=== PATIENT | male | born 1945 | race Caucasian/White ===

== ENCOUNTER → 2018-02-28 13:52 | Outpatient (CLI) | payer MEDICARE, SELFPAY ==
--- NOTE | 2018-02-28 | DI.MRI.S_ITS ---
PROCEDURE: MR KNEE LT WO CON INDICATIONS: UNILATERAL PRIMARY OSTEOARTHRITIS OF LEFT KNEE TECHNIQUE: Noncontrast sagittal PD fast spin echo and T2 fast spin echo with fat saturation, sagittal 3-D FLASH with fat saturation; coronal T1 spin echo and PD fast spin echo with fat saturation, and axial PD fast spin echo with fat saturation through the knee. COMPARISON: None. FINDINGS: Image quality: Excellent. Menisci: Truncated appearance involving posterior horn and body of medial meniscus is seen with slight peripheral displacement no medial meniscus bowing medial collateral ligament. Finding may represent chronic posterior horn medial meniscal tear versus prior partial meniscectomy. No evidence of focal lateral meniscal tear. The meniscal root ligaments appear intact. Cruciate ligaments: The anterior and posterior cruciate ligaments appear intact. Medial structures: The medial collateral ligament appears intact. The posterior oblique ligament, semimembranosus tendon insertions, oblique popliteal ligament, and meniscocapsular junction appear intact. Visualized portions of the pes anserinus tendons appear normal. No abnormal bursal fluid. Lateral structures: The lateral collateral ligament, long and short heads of the biceps femoris tendon appear intact. The popliteus tendon appears normal; the popliteofibular ligament appears intact. The posterosuperior and anteroinferior popliteomeniscal fascicles appear intact. The arcuate and fabellofibular ligaments appear intact, on either side of the lateral inferior geniculate artery. Iliotibial band appears normal. Anterior structures: The quadriceps and patellar tendons appear intact. Patellar alignment is normal. No femoral trochlear dysplasia or ventral trochlear prominence. No edema in the infrapatellar fat pad. Bones and cartilage: No bone marrow contusions or fractures. Mild tricompartment osteoarthritis is seen more on any medial femoral-tibial compartment with thinning of articulating cartilage is. Low-grade chondromalacia involving apex and lateral facet of patella cartilage is also seen. Joint space: There is small amount of joint effusion. No Aguilera's cyst. Normal appearing synovial plicae are incidentally noted. IMPRESSION: 1. Mild tricompartment osteoarthritis more prominent in the medial femorotibial compartment. Low-grade chondromalacia involving cartilage overlying medial femoral condyle and patella cartilage. 2. Truncated appearance involving body and posterior horn of medial meniscus which may represent prior partial meniscectomy versus chronic complex tear. No evidence of focal lateral meniscal tear. 3. Cruciate ligaments are intact. Dictated by: Tino Daly M.D. on 02/28/2018 at 15:35 Approved by: Tino Daly M.D. on 02/28/2018 at 15:39
== END ==
PROVIDERS: Family Provider Internal Medicine; PCP Internal Medicine; Visit Provider Orthopaedic Surgery
DX: M17.12 Unilateral primary osteoarthritis, left knee (principal); M22.42 Chondromalacia patellae, left knee
CPT/HCPCS: 73721

== ENCOUNTER → 2018-07-02 09:32 | Outpatient (CLI) | payer MEDICARE, SELFPAY ==
[2018-07-02 10:26] LABS: Alanine Aminotransferase 45 IU/L (21-72); Albumin 4.4 g/dL (3.5-5.0); Albumin Globulin Ratio 1.6 (1.0-2.8); Alkaline Phosphatase 53 U/L (38-126); Aspartate Aminotransferase 28 IU/L (17-59); Bilirubin Total 0.8 mg/dL (0.2-1.3); Blood Urea Nitrogen 16 mg/dL (9-20); Calcium 9.7 mg/dL (8.4-10.2); Carbon Dioxide 29 mmol/L (22-32); Chloride 100 mmol/L (98-107); Cholesterol 232 mg/dL (140-199); Estimated Glomerular Filt Rate > 60.0 mL/min (>60); Globulin 2.7 g/dL (1.7-4.1); Glucose 114 mg/dL (80-110); HDL Cholesterol 46 mg/dL (40-60); HEMOLYSIS < 15 (0-50); LDL Cholesterol Calculated 150 mg/dL (<100); Potassium 4.4 mmol/L (3.4-5.1); Sodium 139 mmol/L (137-145); Total Protein 7.1 g/dL (6.3-8.2); Triglycerides 178 mg/dL (35-150)
[2018-07-02 10:57] LABS: Prostate Specific Antigen Scrn 0.291 ng/mL (0.1-4.0)
== END ==
PROVIDERS: Family Provider Internal Medicine; PCP Internal Medicine; Visit Provider Internal Medicine
DX: I10 Essential (primary) hypertension (principal); E78.2 Mixed hyperlipidemia; Z12.5 Encounter for screening for malignant neoplasm of prostate
CPT/HCPCS: 36415; 80053; 80061; G0103

== ENCOUNTER → 2019-06-19 09:59 | Outpatient (CLI) | payer MEDICARE, SELFPAY ==
[2019-06-19 11:11] LABS: Alanine Aminotransferase 37 IU/L (<50); Albumin 4.4 g/dL (3.5-5.0); Albumin Globulin Ratio 1.6 (1.0-2.8); Alkaline Phosphatase 47 U/L (38-126); Aspartate Aminotransferase 32 IU/L (17-59); Bilirubin Total 0.8 mg/dL (0.2-1.3); Blood Urea Nitrogen 13 mg/dL (9-20); Calcium 9.8 mg/dL (8.4-10.2); Carbon Dioxide 28 mmol/L (22-32); Chloride 103 mmol/L (98-107); Cholesterol 174 mg/dL (140-199); Estimated Glomerular Filt Rate > 60.0 mL/min (>60); Globulin 2.7 g/dL (1.7-4.1); Glucose 111 mg/dL (80-110); HDL Cholesterol 40 mg/dL (40-60); HEMOLYSIS < 15 (0-50); LDL Cholesterol Calculated 105 mg/dL (<100); Potassium 4.4 mmol/L (3.4-5.1); Sodium 141 mmol/L (137-145); Total Protein 7.1 g/dL (6.3-8.2); Triglycerides 145 mg/dL (35-150)
[2019-06-19 11:40] LABS: Prostate Specific Antigen Scrn 0.319 ng/mL (0.1-4.0)
== END ==
PROVIDERS: PCP Internal Medicine; Visit Provider Internal Medicine
DX: E78.2 Mixed hyperlipidemia (principal); I10 Essential (primary) hypertension; Z12.5 Encounter for screening for malignant neoplasm of prostate; Z79.899 Other long term (current) drug therapy
CPT/HCPCS: 36415; 80053; 80061; G0103

== ENCOUNTER → 2020-08-08 09:56 | Outpatient (CLI) | payer MEDICARE, SELFPAY ==
[2020-08-08 11:16] LABS: Alanine Aminotransferase 28 IU/L (<50); Albumin 4.4 g/dL (3.5-5.0); Albumin Globulin Ratio 1.6 (1.0-2.8); Alkaline Phosphatase 60 U/L (38-126); Aspartate Aminotransferase 29 IU/L (17-59); Bilirubin Total 0.7 mg/dL (0.2-1.3); Blood Urea Nitrogen 13 mg/dL (9-20); Carbon Dioxide 35 mmol/L (22-32); Chloride 102 mmol/L (98-107); Cholesterol 182 mg/dL (140-199); Estimated Glomerular Filt Rate > 60.0 mL/min (>60); Globulin 2.7 g/dL (1.7-4.1); Glucose 115 mg/dL (80-110); HDL Cholesterol 44 mg/dL (40-60); HEMOLYSIS < 15 (0-50); LDL Cholesterol Calculated 103 mg/dL (<100); Potassium 4.8 mmol/L (3.4-5.1); Sodium 139 mmol/L (137-145); Total Protein 7.1 g/dL (6.3-8.2); Triglycerides 173 mg/dL (35-150)
[2020-08-08 11:47] LABS: Prostate Specific Antigen Scrn 0.292 ng/mL (0.1-4.0)
== END ==
PROVIDERS: PCP Internal Medicine; Referring Provider Internal Medicine; Visit Provider Internal Medicine
DX: E78.2 Mixed hyperlipidemia (principal); Z12.5 Encounter for screening for malignant neoplasm of prostate; I10 Essential (primary) hypertension
CPT/HCPCS: 36415; 80053; 80061; G0103

== ENCOUNTER → 2021-09-12 08:54 | Outpatient (CLI) | payer MEDICARE, SELFPAY ==
[2021-09-12 12:23] LABS: Alanine Aminotransferase 31 IU/L (<50); Albumin 4.4 g/dL (3.5-5.0); Albumin Globulin Ratio 1.7 (1.0-2.8); Alkaline Phosphatase 47 U/L (38-126); Aspartate Aminotransferase 31 IU/L (17-59); Bilirubin Total 0.8 mg/dL (0.2-1.3); Blood Urea Nitrogen 12 mg/dL (9-20); Calcium 9.5 mg/dL (8.4-10.2); Carbon Dioxide 30 mmol/L (22-32); Chloride 105 mmol/L (98-107); Cholesterol 210 mg/dL (140-199); Estimated Glomerular Filt Rate > 60 mL/min (>60); Globulin 2.6 g/dL (1.7-4.1); Glucose 108 mg/dL (80-110); HDL Cholesterol 48 mg/dL (40-60); HEMOLYSIS < 15 (0-50); LDL Cholesterol Calculated 128 mg/dL (<100); Potassium 4.5 mmol/L (3.4-5.1); Sodium 141 mmol/L (137-145); Triglycerides 168 mg/dL (35-150)
== END ==
PROVIDERS: PCP Internal Medicine; Referring Provider Internal Medicine; Visit Provider Internal Medicine
DX: E78.2 Mixed hyperlipidemia (principal); I10 Essential (primary) hypertension
CPT/HCPCS: 36415; 80053; 80061

== ENCOUNTER → 2022-09-15 08:48 | Outpatient (CLI) | payer MEDICARE, SELFPAY ==
[2022-09-15 10:19] LABS: Alanine Aminotransferase 31 IU/L (<50); Albumin 4.2 g/dL (3.5-5.0); Albumin Globulin Ratio 1.4 (1.0-2.8); Alkaline Phosphatase 48 U/L (38-126); Aspartate Aminotransferase 26 IU/L (17-59); BUN Creatinine Ratio 12.3 (6-22); Blood Urea Nitrogen 13 mg/dL (9-20); Carbon Dioxide 31 mmol/L (22-32); Chloride 102 mmol/L (98-107); Cholesterol 172 mg/dL (140-199); Estimated Glomerular Filt Rate > 60 mL/min (>60); Globulin 2.9 g/dL (1.7-4.1); Glucose 109 mg/dL (80-110); HDL Cholesterol 36 mg/dL (40-60); HEMOLYSIS < 15 (0-50); LDL Cholesterol Calculated 103 mg/dL (<100); Potassium 3.8 mmol/L (3.4-5.1); Sodium 138 mmol/L (137-145); Total Protein 7.1 g/dL (6.3-8.2); Triglycerides 165 mg/dL (35-150)
== END ==
PROVIDERS: PCP Internal Medicine; Referring Provider Internal Medicine; Visit Provider Internal Medicine
DX: I10 Essential (primary) hypertension (principal); E78.2 Mixed hyperlipidemia
CPT/HCPCS: 36415; 80053; 80061

== ENCOUNTER 2022-11-01 13:26 | Day surgery (SDC) | payer MEDICARE, SELFPAY ==
--- NOTE | 2022-11-01 13:52 | PM.HP.1 ---
History of Present Illness History of Present Illness Date Patient Seen: 11/01/22 Time Patient Seen: 13:52 Chief complaint: Dx Colonoscopy Narrative: Vasu is a 77-year-old man who is here for colonoscopy. His last was 10 years ago and he thinks some polyps were removed. His father had colon cancer in his 90s. 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) Surgical History History of carpal tunnel repair Family History (Updated 09/17/22 @ 15:25 by Brian Carvajal MD) Father Colon cancer Social History Smoking Status: Former smoker Meds Home Medications and Allergies Home Medications Medication Instructions Recorded Confirmed Type Fish Oil (#FISH OIL) 1 iu PO Q DAY ##0 09/27/11 09/17/22 History Multivitamin 1 packet PO BID 08/18/20 09/17/22 History fluticasone propionate 50 2 spray intranasal BEDTIME #16 09/11/21 09/17/22 Rx mcg/actuation nasal grams spray,suspension atenolol 50 mg-chlorthalidone 25 See Rx Instructions PO QDAY #90 02/07/22 09/17/22 Rx mg tablet tabs simvastatin 40 mg tablet (Zocor) 40 mg PO Q DAY #90 tabs 08/24/22 09/17/22 Rx clotrimazole-betamethasone 1 1 applic topical TID #45 grams 09/17/22 09/17/22 Rx %-0.05 % topical cream sildenafil 100 mg tablet 50 - 100 mg PO DAILY PRN sexual 09/17/22 09/17/22 Rx activity #10 tabs sodium sul 1.479 gram-potas ch See Rx Instructions PO PER PKG DIR 10/30/22 Rx 0.188 gram-magnes sul 0.225 gram #24 tabs tablet (Sutab) Allergies Allergy/AdvReac Type Severity Reaction Status Date / Time No Known Drug Allergies Allergy Verified 11/01/22 13:52 Exam Const General: healthy appearing Assessment & Plan Assessment and plan (1) History of adenomatous polyp of colon: Status: Inactive Plan Dorian is a 77-year-old man who is here for colonoscopy. We reviewed the risks and benefits and he would like to proceed.
[2022-11-01 13:54] VITALS: BP 148/83; PULSE 102; RESP 17; TEMP 36.4; O2SAT 93; BMI 28.7
[2022-11-01] MEDS: LACTATED RINGERS 1,000 ML 120 ML IV (14:14)
--- NOTE | 2022-11-01 14:50 | P.OP.COLON_ITS ---
Operative Date/Time/Diagnoses Date of procedure: 11/01/22 Time of procedure: 14:50 Pre-op diagnosis: Colon cancer screening Post-op diagnosis: same Procedure & Clinicians Study performed: Colonoscopy Same procedure as scheduled: Yes Surgeon: Blaise Gomez Procedure Notes Procedure in detail: Surgeon: Blaise Gomez MD Anesthesia: Crissy Chua [employer] [address] [employer] Procedure: The patient was brought to the endoscopy suite, placed in left lateral decubitus position. The patient was connected to monitoring devices. A time-out was performed. Sedation was administered. Once the patient was adequately sedated, a digital rectal exam was performed and was normal. The scope was then inserted and advanced to the cecum where the appendiceal orifice was identified and photographed. The scope was then slowly withdrawn over greater than 6 minutes. The mucosa was thoroughly inspected. There was signi ficant pandiverticulosis greatest in the sigmoid region. The scope was retroflexed in the rectum. Some internal hemorrhoids. The scope was straightened and removed. The patient was awakened and brought to recovery. Scope withdrawal time: 7 minute Sedation time: 15 minutes EBL: 0 Findings: Diverticulosis Post-procedure Disposition: PACU
[2022-11-01 14:53] VITALS: BP 116/84; PULSE 88; RESP 16; TEMP 36.2; O2SAT 93
[2022-11-01 14:58] VITALS: BP 131/77; PULSE 74; RESP 14; O2SAT 95
[2022-11-01 15:03] VITALS: BP 124/76; PULSE 81; RESP 14; TEMP 36.1; O2SAT 95
== END 2022-11-01 15:13 | disposition home or self-care (01) ==
PROVIDERS: PCP Internal Medicine; Referring Provider Surgery; Visit Provider Surgery
PROC: 0DJD8ZZ Inspection of Lower Intestinal Tract, Via Natural or Artificial Opening Endoscopic (ICD-10-PCS; CPT 45378; principal; 2022-11-01 14:30)
DX: Z12.11 Encounter for screening for malignant neoplasm of colon (principal); K57.30 Diverticulosis of large intestine without perforation or abscess without bleeding; K64.8 Other hemorrhoids
CPT/HCPCS: G0121

== ENCOUNTER → 2023-05-04 10:59 | Outpatient (CLI) | payer MEDICARE, SELFPAY ==
--- NOTE | 2023-05-04 | DI.MRI.S_ITS ---
PROCEDURE: MR HIP RT WO CON INDICATIONS: PAIN IN RIGHT HIP TECHNIQUE: Noncontrast coronal T1 spin echo and STIR through the bony pelvis. Coronal and axial T2 fast spin echo with fat saturation, sagittal T1 spin echo, and oblique axial T2 fast spin echo with fat saturation through the hip. COMPARISON: None. FINDINGS: Image quality: Excellent. Bones and joints: [id number] bilateral hip joint osteoarthritic changes are seen with joint space narrowing, subchondral sclerosis and cyst formation and small lateral marginal osteophyte formation. throughout. No intraosseous lesions or fractures. No avascular necrosis of the femoral heads. The visualized lower lumbar spine appears normally aligned. Tendons and ligaments: There is distal right gluteus medius tendinosis and low-grade partial-thickness tear at its insertion on greater trochanter. Small calcification is seen involving distal right gluteus medius tendon concerning for calcific tendinitis. Distal right gluteus minimus tendinosis is also seen. The nearby proximal iliotibial band also appears intact. The iliopsoas tendon appears intact, without adjacent bursal fluid collections or evidence for impingement syndrome. The origin of the hamstring tendon is intact at the ischial tuberosity, as well as the associated sacrotuberous ligament. Labrum and cartilage: Diffuse loss of articulating cartilage in right femoral head is seen. There is fraying of superior anterior right hip labrum with T2 hyperintense signal at 12 to 2 o'clock position concerning for superior anterior labral tear. The alpha angle of the femur is within normal limits at less than 55 degrees. Soft tissues: Visualized muscles demonstrate normal bulk and internal signal. Quadratus femoris muscle demonstrates no internal edema to suggest ischiofemoral impingement. The proximal sciatic neurovascular bundle appears normal adjacent to the hamstring tendons. No free pelvic fluid. Bladder wall thickness is normal. Genitourinary structures and bowel loops appear normal where visualized. IMPRESSION: 1. Symmetric appearing [id number] bilateral hip joint osteoarthritis. No hip fracture or dislocation. No evidence of avascular necrosis. 2. Suggestion of calcific tendinitis involving distal right gluteus medius tendon at its insertion on greater trochanter with low-grade partial-thickness tear. Distal right gluteus minimus tendinosis. 3. Suggestion of superior anterior right hip labral tear at 12 to 2 o'clock position. Dictated by: Tino Daly M.D. on 05/06/2023 at 13:37 Approved by: Tino Daly M.D. on 05/06/2023 at 13:39
== END ==
PROVIDERS: PCP Internal Medicine; Referring Provider Orthopaedic Surgery Foot and Ankle Surgery; Visit Provider Orthopaedic Surgery Foot and Ankle Surgery
DX: M16.0 Bilateral primary osteoarthritis of hip (principal); S76.011A Strain of muscle, fascia and tendon of right hip, initial encounter; M25.551 Pain in right hip
CPT/HCPCS: 73721

== ENCOUNTER → 2023-05-14 10:18 | Outpatient (CLI) | payer MEDICARE, SELFPAY ==
[2023-05-14 11:10] LABS: Add Manual Diff / Slide Review NO; Basophils Absolute Auto 0 /uL (0-100); Basophils Percent Auto 0.6 % (0-2); Eosinophils Absolute Auto 200 /uL (0-450); Eosinophils Percent Auto 2.8 % (2-4); Hematocrit 44.2 % (41-53); Hemoglobin 15.6 g/dL (13.5-17.5); Lymphocytes Absolute Auto 1600 /uL (1100-4500); Lymphocytes Percent Auto 29.1 % (25-40); Mean Corpuscular HGB Conc 35.4 % (30-36); Mean Corpuscular Hemoglobin 31.8 PG (26-34); Mean Corpuscular Volume 89.9 fL (80-100); Monocytes Absolute Auto 500 /uL (0-900); Monocytes Percent Auto 9.5 % (3-14); Neutrophils Absolute Auto 3100 /uL (1500-7000); Platelet Count 283 X10^3/uL (150-400); Red Blood Cell Count 4.92 X10^6/uL (4.5-5.9); Red Cell Distribution Width 12.5 % (11.6-14.8); White Blood Cell Count 5.4 X10^3/uL (4.5-11.0)
[2023-05-14 11:13] LABS: Hemoglobin A1C% w Est Avg Glu 5.7 % (4.0-6.0)
[2023-05-14 11:18] LABS: Blood Urea Nitrogen 14 mg/dL (9-20); Calcium 9.9 mg/dL (8.4-10.2); Carbon Dioxide 29 mmol/L (22-32); Chloride 100 mmol/L (98-107); Estimated Glomerular Filt Rate > 60 mL/min (>60); Glucose 125 mg/dL (80-110); HEMOLYSIS < 15 (0-50); Potassium 4.2 mmol/L (3.4-5.1); Sodium 137 mmol/L (137-145)
== END ==
PROVIDERS: PCP Internal Medicine; Referring Provider Orthopaedic Surgery Foot and Ankle Surgery; Visit Provider Orthopaedic Surgery Foot and Ankle Surgery
DX: Z01.818 Encounter for other preprocedural examination (principal); Z01.812 Encounter for preprocedural laboratory examination; R73.9 Hyperglycemia, unspecified
CPT/HCPCS: 36415; 80048; 83036; 85025; 93005; 93010

== ENCOUNTER → 2023-08-09 09:56 | Outpatient (CLI) | payer MEDICARE, SELFPAY ==
[2023-08-09 10:46] LABS: Alanine Aminotransferase 30 IU/L (<50); Albumin 4.2 g/dL (3.5-5.0); Albumin Globulin Ratio 1.3 (1.0-2.8); Alkaline Phosphatase 59 U/L (38-126); Aspartate Aminotransferase 27 IU/L (17-59); BUN Creatinine Ratio 10.9 (6-22); Blood Urea Nitrogen 12 mg/dL (9-20); Calcium 9.5 mg/dL (8.4-10.2); Carbon Dioxide 32 mmol/L (22-32); Chloride 103 mmol/L (98-107); Cholesterol 204 mg/dL (140-199); Estimated Glomerular Filt Rate > 60 mL/min (>60); Globulin 3.2 g/dL (1.7-4.1); Glucose 122 mg/dL (80-110); HDL Cholesterol 40 mg/dL (40-60); HEMOLYSIS < 15 (0-50); LDL Cholesterol Calculated 117 mg/dL (<100); Potassium 3.8 mmol/L (3.4-5.1); Sodium 139 mmol/L (137-145); Total Protein 7.4 g/dL (6.3-8.2); Triglycerides 237 mg/dL (35-150)
== END ==
PROVIDERS: PCP Internal Medicine; Referring Provider Internal Medicine; Visit Provider Internal Medicine
DX: I10 Essential (primary) hypertension (principal); E78.2 Mixed hyperlipidemia
CPT/HCPCS: 36415; 80053; 80061

== ENCOUNTER → 2024-04-16 13:24 | Outpatient (CLI) | payer MEDICARE, SELFPAY ==
--- NOTE | 2024-04-16 13:25 | DI.RAD.S_ITS ---
PROCEDURE: XR CLAVICLE RT INDICATIONS: thinks he has a bump at SCJjoint / proximal clavicle TECHNIQUE: 2 views of the clavicle were acquired. COMPARISON: None. FINDINGS: Bones: Tiny remote avulsion fracture of the superior clavicle tip appreciated. Acromioclavicular and glenohumeral joints: Minimal degeneration. Soft tissues: No soft tissue swelling, calcification or mass. IMPRESSION: Tiny remote avulsion fractures superior clavicle tip . mild degeneration. Sternoclavicular regions suboptimally visualized. Suggest sternal films to determine asymmetry in the sternoclavicular joints Dictated by: Brian Mayorga M.D. on 04/17/2024 at 7:28 Approved by: Brian Mayorga M.D. on 04/17/2024 at 7:30
== END ==
PROVIDERS: PCP Internal Medicine; Referring Provider Physician Assistant; Visit Provider Physician Assistant
DX: M95.8 Other specified acquired deformities of musculoskeletal system (principal)
CPT/HCPCS: 73000

== ENCOUNTER → 2024-04-30 10:29 | Outpatient (CLI) | payer MEDICARE, SELFPAY ==
--- NOTE | 2024-04-30 10:30 | DI.RAD.S_ITS ---
PROCEDURE: XR STERNUM MIN 2V INDICATIONS: f/u on previous xray, avulsion fx to sternoclavicular joint TECHNIQUE: 2 views of the sternum acquired. COMPARISON: None. FINDINGS: Bones: No fractures or dislocations. No suspicious bony lesions. Soft tissues: Retrosternal soft tissues appear normal. IMPRESSION: No acute bony abnormality. Dictated by: Daljit Akhtar M.D. on 05/01/2024 at 2:09 Approved by: Daljit Akhtar M.D. on 05/01/2024 at 2:09
--- NOTE | 2024-04-30 10:30 | DI.RAD.S_ITS ---
PROCEDURE: STERNOCLAVICULAR JOINT BI INDICATIONS: f/u on previous xray, avulsion fx to sternoclavicular joint TECHNIQUE: 3 views of the sternoclavicular joints acquired. COMPARISON: Located Within [facility], CR, XR CLAVICLE RT, 04/16/2024, 13:25. FINDINGS: Bones: Osteoarthritic changes are noted in bilateral sternoclavicular joints with joint space narrowing and subchondral sclerosis. No fractures or dislocations. No suspicious bony destruction or sclerosis. Soft tissues: Visualized lung apices are clear. No suspicious soft tissue calcifications or densities. IMPRESSION: Symmetric appearing [id number] bilateral sternoclavicular joint osteoarthritis. No acute fracture or dislocation. Previously described avulsion injury involving superior aspect of right lateral clavicular head is not included on the current study. Dictated by: Tino Daly M.D. on 04/30/2024 at 14:25 Approved by: Tino Daly M.D. on 04/30/2024 at 14:31
== END ==
PROVIDERS: PCP Internal Medicine; Referring Provider Physician Assistant; Visit Provider Physician Assistant
DX: S42.013A Anterior displaced fracture of sternal end of unspecified clavicle, initial encounter for closed fracture (principal); M19.09 Primary osteoarthritis, other specified site; X58.XXXA Exposure to other specified factors, initial encounter
CPT/HCPCS: 71120; 71130

== ENCOUNTER → 2024-08-13 10:21 | Outpatient (CLI) | payer MEDICARE, SELFPAY ==
[2024-08-13 11:48] LABS: Alanine Aminotransferase 32 IU/L (<50); Albumin 4.2 g/dL (3.5-5.0); Albumin Globulin Ratio 1.7 (1.0-2.8); Alkaline Phosphatase 52 U/L (38-126); Aspartate Aminotransferase 31 IU/L (17-59); BUN Creatinine Ratio 10.1 (6-22); Bilirubin Total 0.8 mg/dL (0.2-1.3); Blood Urea Nitrogen 11 mg/dL (9-20); Calcium 9.7 mg/dL (8.4-10.2); Carbon Dioxide 30 mmol/L (22-32); Chloride 102 mmol/L (98-107); Cholesterol 200 mg/dL (140-199); Estimated Glomerular Filt Rate > 60 mL/min (>60); Globulin 2.5 g/dL (1.7-4.1); Glucose 113 mg/dL (80-110); HDL Cholesterol 38 mg/dL (40-60); HEMOLYSIS < 15 (0-50); LDL Cholesterol Calculated 130 mg/dL (<100); Sodium 139 mmol/L (137-145); Total Protein 6.7 g/dL (6.3-8.2); Triglycerides 162 mg/dL (35-150)
== END ==
PROVIDERS: PCP Internal Medicine; Referring Provider Internal Medicine; Visit Provider Internal Medicine
DX: I10 Essential (primary) hypertension (principal); E78.2 Mixed hyperlipidemia
CPT/HCPCS: 36415; 80053; 80061